=== PATIENT | female | born 1980 | race Caucasian/White ===

== ENCOUNTER 2017-04-25 13:38 | Emergency (ER) | payer OTHER | END 2017-04-25 17:33 | disposition left against medical advice (07) | LOC: FER 13:38 | DX: L50.9 Urticaria, unspecified (principal); Z53.8 Procedure and treatment not carried out for other reasons ==

== ENCOUNTER 2021-08-28 12:01 | Emergency (ER) | payer OTHER ==
[2021-08-28] MEDS ORDERED: AUGMENTIN 875-1 EACH PO (12:34)
[2021-08-28] MEDS ORDERED: CHLORTHALIDONE50 MG PO (12:34)
== END 2021-08-28 18:22 | disposition home or self-care (01) ==
LOC: FER 12:01
DX: U07.1 COVID-19 (principal); K04.7 Periapical abscess without sinus; I10 Essential (primary) hypertension; E66.9 Obesity, unspecified; F17.210 Nicotine dependence, cigarettes, uncomplicated
CPT/HCPCS: 99283; U0002